=== PATIENT | female | born 1990 | race African-American/Black ===

== ENCOUNTER → 2017-06-23 | Emergency (ER) | payer MEDICAID ==
[~2017-06-23] VITALS: Ht 172.7 cm; Wt 63.0 kg
[~2017-06-23] MED LIST: CEFTRIAXONE SODIUM 500 MG/VIAL IM ONE; LIDOCAINE HCL 1% 20ML VIAL (Pyxis) INJ INFIL ONE; LORAZEPAM 2MG/ML CPJ IM ONE
[2017-06-23 05:38] LABS: BASOPHILS % 0.5 % (0.0-2.0); EOSINOPHILS % 0.4 % (0.0-5.0); HEMATOCRIT. 35.4 % (36.0-48.0); HEMOGLOBIN. 11.3 g/dL (12.0-16.0); LYMPHOCYTES % 17.6 % (20.0-50.0); MEAN CORPUSCULAR HEMOGLOBIN 27.9 pg (28.0-32.0); MEAN CORPUSCULAR VOLUME 87.1 fL (81.0-99.0); MEAN PLATELET VOLUME 9.6 fl (7.4-10.4); MONOCYTES % 8.4 % (2.0-8.0); NEUTROPHILS % 73.1 % (40.0-76.0); PLATELET 201 x1000/uL (130-400); RED BLOOD CELL COUNT 4.06 mill/uL (4.2-5.4); RED CELL DISTRIBUTION WIDTH 13.9 % (11.6-14.6)
[2017-06-23 05:50] LABS: CHLORIDE 108 mEq/L (98-107); ETHANOL BLOOD < 10 mg/dL
[2017-06-23 06:52] LABS: CLARITY URINE CLOUDY (CLEAR); COLOR URINE DARK YELLOW (YELLOW); KETONES URINE TRACE (NEGATIVE); LEUKOCYTE ESTERASE URINE 1+ (NEGATIVE); NITRITE URINE NEGATIVE (NEGATIVE); OCCULT BLOOD URINE 1+ (NEGATIVE); PROTEIN URINE 2+ (NEGATIVE); SPECIFIC GRAVITY URINE 1.035 (1.005-1.030)
[2017-06-23 08:14] LABS: *AMPHETAMINES SCREEN URINE NEGATIVE (NEGATIVE); *BARBITURATES SCREEN URINE NEGATIVE (NEGATIVE); *BENZODIAZEPINES SCREEN URINE NEGATIVE (NEGATIVE); *COCAINE SCREEN URINE NEGATIVE (NEGATIVE); METHADONE URINE SCREEN NEGATIVE (NEGATIVE); OPIATES URINE SCREEN NEGATIVE (NEGATIVE); PHENCYCLIDINE URINE SCREEN NEGATIVE (NEGATIVE)
[2017-06-23 08:26] LABS: CANNABINOID URINE SCREEN PRESUMTIVE POSITIVE (NEGATIVE)
[2017-06-23 17:22] VITALS: BP 100/52
== END ==
LOC: ER 02:32
DX: F91.8 Other conduct disorders (principal); D64.9 Anemia, unspecified; N39.0 Urinary tract infection, site not specified
CPT/HCPCS: 36415; 70450; 80053; 80305; 81003; 81025; 85025; 87086; 96372; 99285; G0482; J0696; J2060; J3490

== ENCOUNTER 2018-07-12 16:45 | Emergency (ER) | payer MEDICAID ==
[~2018-07-12] VITALS: Ht 180.3 cm; Wt 68.0 kg
[2018-07-12] MEDS ORDERED: HYDROCODONE/ACETAMINOPHEN 5/325MG TABLET PO STA (19:41)
[2018-07-12] MEDS ORDERED: ONDANSETRON 4MG ODT PO STA (19:41)
[2018-07-12 20:52] LABS: CHLORIDE 108 mEq/L (98-107)
[2018-07-12 20:53] LABS: BASOPHILS % 0.3 % (0.0-2.0); EOSINOPHILS % 0.5 % (0.0-5.0); HEMATOCRIT. 37.9 % (36.0-48.0); HEMOGLOBIN. 12.4 g/dL (12.0-16.0); LYMPHOCYTES % 17.1 % (20.0-50.0); MEAN CORPUSCULAR HEMOGLOBIN 29.6 pg (28.0-32.0); MEAN CORPUSCULAR VOLUME 90.1 fL (81.0-99.0); MEAN PLATELET VOLUME 9.6 fl (7.4-10.4); MONOCYTES % 8.5 % (2.0-8.0); NEUTROPHILS % 73.6 % (40.0-76.0); PLATELET 209 x1000/uL (130-400); RED BLOOD CELL COUNT 4.21 mill/uL (4.2-5.4); RED CELL DISTRIBUTION WIDTH 14.1 % (11.6-14.6)
[2018-07-12 20:56] LABS: PROTHROMBIN TIME 10.4 sec (9.1-11.1)
[2018-07-13 00:37] VITALS: BP 114/62
== END 2018-07-13 00:40 | disposition home or self-care (01) ==
LOC: ER 16:45
DX: S50.312A Abrasion of left elbow, initial encounter (principal); S60.811A Abrasion of right wrist, initial encounter; S00.81XA Abrasion of other part of head, initial encounter; S00.01XA Abrasion of scalp, initial encounter; Y04.0XXA Assault by unarmed brawl or fight, initial encounter; Z88.3 Allergy status to other anti-infective agents; Y93.89 Activity, other specified; Y92.59 Other trade areas as the place of occurrence of the external cause
CPT/HCPCS: 36415; 70450; 70486; 73080; 73110; 76705; 80053; 81025; 83690; 85025; 85610; 99284; Q0162

== ENCOUNTER 2020-07-30 03:15 | Emergency (ER) | payer MEDICAID ==
[~2020-07-30] VITALS: Ht 180.3 cm; Wt 100.1 kg
[2020-07-30 03:30] VITALS: BP 111/75
[2020-07-30] MEDS ORDERED: MUPI15CR11 TP ×2 (04:04→04:12)
[2020-07-30] MEDS ORDERED: CLIN300C12 MT ×2 (04:04→04:12)
[2020-07-30] MEDS ORDERED: CLINDAMYCIN HCL 150MG CAPSULE PO SCH (06:00)
[2020-07-30] MEDS ORDERED: MUPIROCIN 2% OINT 22GM TOP SCH (06:00)
== END 2020-07-30 04:29 | disposition home or self-care (01) ==
LOC: ER 03:15
DX: L01.00 Impetigo, unspecified (principal); Z88.1 Allergy status to other antibiotic agents
CPT/HCPCS: 99283; Z7610